=== PATIENT | female | born 2000 | race Caucasian/White ===

== ENCOUNTER 2024-04-23 22:42 | Emergency (ER) | payer OTHER ==
[~2024-04-23] VITALS: Ht 165.1 cm; Wt 90.7 kg
[2024-04-24 00:07] VITALS: BP 130/81; TEMP 98.5; O2SAT 99
[2024-04-24] MEDS ORDERED: BENZONATATE 100 MG CAPSULE PO ONE (01:01)
[2024-04-24] MEDS: BENZONATATE 100 MG CAPSULE PO PRN (01:03)
[2024-04-24] MEDS ORDERED: BENZ-13 PO (02:12)
[2024-04-24] MEDS ORDERED: ALBU18HF2 INH (02:12)
[2024-04-25] MEDS ORDERED: PRED20TA PO (11:24)
== END 2024-04-24 02:45 | disposition home or self-care (01) ==
LOC: ER 22:56
DX: R05.9 Cough, unspecified (principal); J45.909 Unspecified asthma, uncomplicated
CPT/HCPCS: 71045-TC

== ENCOUNTER 2024-04-25 08:39 | Emergency (ER) | payer OTHER ==
[~2024-04-25] VITALS: Ht 165.1 cm; Wt 90.7 kg
[~2024-04-25 08:39] MED LIST: ALBU18HF2 INH; BENZ-13 PO
[2024-04-25 08:50] VITALS: BP 131/75; TEMP 98.6
[2024-04-25] MEDS ORDERED: ALBUTEROL FS 2.5 MG/3 ML VIAL.NEB ONE (09:40)
[2024-04-25] MEDS ORDERED: IPRATROPIUM NEB FS 0.5 MG/2.5 ML AMPUL.NEB ONE (09:40)
[2024-04-25] MEDS ORDERED: ACETAMINOPHEN ES 500 MG TABLET ONE (09:45)
[2024-04-25] MEDS: IPRATROPIUM NEB FS 0.5 MG/2.5 ML AMPUL.NEB NEB ONE (09:47)
[2024-04-25] MEDS: ALBUTEROL FS 2.5 MG/3 ML VIAL.NEB NEB ONE (09:47)
[2024-04-25] MEDS: ACETAMINOPHEN ES 500 MG TABLET PO ONE (09:53)
[2024-04-25 09:54] VITALS: O2SAT 97
[2024-04-25] MEDS ORDERED: PRED20TA PO (11:24)
[2024-04-25] MEDS ORDERED: predniSONE 20 MG TABLET ONE (11:28)
[2024-04-25] MEDS: predniSONE 20 MG TABLET PO ONE (11:30)
== END 2024-04-25 11:40 | disposition home or self-care (01) ==
LOC: ER 08:44
DX: U07.1 COVID-19 (principal); J45.901 Unspecified asthma with (acute) exacerbation; Z79.52 Long term (current) use of systemic steroids
CPT/HCPCS: 99283; 94640; J7512